=== PATIENT | male | born 1940 | race Caucasian/White ===

== ENCOUNTER 2016-06-03 20:04 | Emergency (ER) | payer OTHER, MEDICARE ==
[2016-06-03 20:13] VITALS: BP 129/77; PULSE 65; TEMP 98.1; BMI 38.4
[2016-06-03] MEDS ORDERED: ONDANSETRON 4 MG/2 ML VIAL IVPUSH ONE (20:34)
--- NOTE | 2016-06-03 20:34 | PDOC ---
History of Present Illness - General History Source: Patient Exam Limitations: No Limitations - History of Present Illness Initial Comments: 06/03/16 21:28 The patient is a 76 year old male, with a significant past medical history of cardiac stent and HLD, who presents to the emergency department with abdominal pain and nausea onset 2 hours prior to presentation. He states that he was sitting down when the pain started. He also reports abdominal bloating. He denies any changes to his bowel movements. 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 The patient denies chest pain, shortness of breath, headache and dizziness. Denies fever, chills, nausea, vomit, diarrhea and constipation. Denies dysuria, frequency, urgency and hematuria. Allergies: Penicillins Past surgical history: Cardiac stent, appendectomy, cholecystectomy Social history: No alcohol, tobacco or drug use reported <Paxton Amezquita - Last Filed: 06/03/16 21:34> <Eufemia Mayen - Last Filed: 06/04/16 01:06> - General Chief Complaint: Pain Stated Complaint: ABD PAIN, NAUSEA Time Seen by Provider: 06/03/16 20:15 Past History <Paxton Amezquita - Last Filed: 06/03/16 21:34> - Past Medical History Cardiac Disorders: Yes (CARDIAC STENT) Hypercholesterolemia: Yes - Surgical History Appendectomy: Yes Cardiac Surgery: Yes (CARDIAC STENT, ABLATION) Cholecystectomy: Yes - Psycho/Social/Smoking Cessation Hx Anxiety: No Suicidal Ideation: No Smoking Status: No Smoking History: Never smoked Have you smoked in the past 12 months: No Number of Cigarettes Smoked Daily: 0 If you are a former smoker, when did you quit?: 25 YEARS AGO Information on smoking cessation initiated: No Hx Alcohol Use: No Drug/Substance Use Hx: No Substance Use Type: None <Eufemia Mayen - Last Filed: 06/04/16 01:06> - Past Medical History Allergies/Adverse Reactions: Allergies Allergy/AdvReac Type Severity Reaction Status Date / Time Penicillins Allergy Unknown Verified 06/03/16 20:06 Home Medications: Ambulatory Orders Metoprolol Succinate [Toprol XL -] 25 mg PO DAILY 06/27/15 Donepezil HCl mg PO DAILY 06/03/16 Ondansetron [Zofran Odt -] 4 mg SL TID PRN #10 od.tablet 06/03/16 Review of Systems - Review of Systems Able to Perform ROS?: Yes Comments:: 06/03/16 21:28 GENERAL/CONSTITUTIONAL: No fever or chills. No weakness. HEAD, EYES, EARS, NOSE AND THROAT: No change in vision. No ear pain or discharge. No sore throat. CARDIOVASCULAR: No chest pain or shortness of breath RESPIRATORY: No cough, wheezing, or hemoptysis. GASTROINTESTINAL: +Abdominal pain and nausea. No vomiting, diarrhea or constipation. GENITOURINARY: No dysuria, frequency, or change in urination. MUSCULOSKELETAL: No joint or muscle swelling or pain. No neck or back pain. SKIN: No rash NEUROLOGIC: No headache, vertigo, loss of consciousness, or change in strength/ sensation. ENDOCRINE: No increased thirst. No abnormal weight change HEMATOLOGIC/LYMPHATIC: No anemia, easy bleeding, or history of blood clots. ALLERGIC/IMMUNOLOGIC: No hives or skin allergy. <Paxton Amezquita - Last Filed: 06/03/16 21:34> *Physical Exam - Vital Signs Last Vital Signs Temp Pulse Resp BP Pulse Ox 98.1 F 65 18 129/77 96 06/03/16 20:05 06/03/16 20:05 06/03/16 20:05 06/03/16 20:05 06/03/16 20:05 - Physical Exam Comments: 06/03/16 21:29 GENERAL: Awake, alert, and fully oriented, in no acute distress HEAD: No signs of trauma, normocephalic, atraumatic EYES: PERRLA, EOMI, sclera anicteric, conjunctiva clear ENT: Auricles normal inspection, hearing grossly normal, nares patent, oropharynx clear without exudates. Moist mucosa NECK: Normal ROM, supple, no lymphadenopathy, JVD, or masses LUNGS: No distress, speaks full sentences, clear to auscultation bilaterally HEART: Regular rate and rhythm, normal S1 and S2, no murmurs, rubs or gallops, peripheral pulses normal and equal bilaterally. ABDOMEN: Soft, nontender, normoactive bowel sounds. No guarding, no rebound. No masses EXTREMITIES: Normal inspection, Normal range of motion, no edema. No clubbing or cyanosis. NEUROLOGICAL: Cranial nerves II through XII grossly intact. Normal speech, normal gait, no focal sensorimotor deficits SKIN: Warm, Dry, normal turgor, no rashes or lesions noted. <Paxton Amezquita - Last Filed: 06/03/16 21:34> - Vital Signs Last Vital Signs Temp Pulse Resp BP Pulse Ox 98.1 F 65 18 129/77 96 06/03/16 20:05 06/03/16 20:05 06/03/16 20:05 06/03/16 20:05 06/03/16 20:05 <Eufemia Mayen - Last Filed: 06/04/16 01:06> ED Treatment Course - LABORATORY CBC & Chemistry Diagram: 06/03/16 20:00 06/03/16 20:00 - ADDITIONAL ORDERS Additional order review: Laboratory Results 06/03/16 06/03/16 06/03/16 20:00 20:00 20:00 Sodium 137 Potassium 3.9 Chloride 103 Carbon Dioxide 26 Anion Gap 8 BUN 14 D Creatinine 0.7 Creat Clearance w eGFR > 60 Random Glucose 155 H Calcium 8.9 Total Bilirubin 0.4 D AST 19 D ALT 18 D Alkaline Phosphatase 68 Creatine Kinase 132 Troponin I < 0.03 L Total Protein 6.6 Albumin 4.0 Lipase 50 06/03/16 20:00 RBC 5.20 MCV 84.6 MCHC 32.5 RDW 13.6 MPV 7.8 Neutrophils % 78.6 Lymphocytes % 13.6 Monocytes % 5.2 Eosinophils % 2.3 Basophils % 0.3 - Medications Given in the ED: ED Medications Discontinued Medications Generic Name Dose Route Start Last Admin Trade Name Heribertoq PRN Reason Stop Dose Admin Ondansetron HCl 4 mg 06/03/16 20:34 06/03/16 20:50 Zofran Injection IVPUSH 06/03/16 20:35 4 mg ONCE ONE Administration <Paxton Amezquita - Last Filed: 06/03/16 21:34> - LABORATORY CBC & Chemistry Diagram: 06/03/16 20:00 06/03/16 20:00 <Eufemia Mayen - Last Filed: 06/04/16 01:06> Progress Note - Progress Note Progress Note: Documentation has been prepared under my direction and personally reviewed by me in its entirety. I attest that this documented accurately reflects all work, treatment, procedures and medical decision making performed by me. <Eufemia Mayen - Last Filed: 06/04/16 01:06> Medical Decision Making - Medical Decision Making As noted above, this 76-year-old man with a history of coronary artery disease ( stent), hyperlipidemia, appendectomy and cholecystectomy presents with few hour history of nausea. Patient has not actually vomited or had fever/chills, diarrhea or constipation. 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 No recent travel. No ingestion of food from a restaurant or catered event. Patient denies chest pain/shortness of breath/arm pain/jaw pain or diaphoresis Cardiac risk factors: Hyperlipidemia and previous history of coronary artery disease. Patient is a former smoker (none 25 years) Exam was unremarkable no abdominal tenderness or masses. Twelve-lead electrocardiogram is performed. This shows normal sinus rhythm at 73 bpm; there is no evidence of acute ST or T-wave abnormalities. [place], intervals and wave forms are all normal. Tracing is unchanged from previous EKG dated 06/27/15 Laboratory evaluation including cardiac enzymes are essentially normal. Patient received Zofran 4 mg IV. After this medication was administered, patient felt significantly better and asked to be discharged. Patient given 8 ounces of water by mouth prior to discharge. He tolerated this well feeling no discomfort or nausea. Patient will be discharged with instructions to maintain clear liquids and advance diet cautiously. Prescription for Zofran 4 mg ODT to be taken up to 3 times a day will be transmitted to his pharmacy. He should not work tomorrow and return to the ER if vomiting/pain/fever occurs Follow-up with his doctor should be within the next 4-5 days <Eufemia Mayen - Last Filed: 06/04/16 01:06> *DC/Admit/Observation/Transfer - Attestations Scribe Attestion: 06/03/16 21:29 Documentation prepared by Paxton Amezquita, acting as medical science liaison for Eufemia Mayen MD <Paxton Amezquita - Last Filed: 06/03/16 21:34> <Eufemia Mayen - Last Filed: 06/04/16 01:06> Diagnosis at time of Disposition: Nausea - Discharge Dispostion Disposition: HOME Condition at time of disposition: Stable - Prescriptions Prescriptions: Ondansetron [Zofran Odt -] 4 mg SL TID PRN #10 od.tablet PRN Reason: Nausea - Referrals Referrals: Henrry Hannah [Primary Care Provider] - - Patient Instructions Printed Discharge Instructions: DI for Viral Gastroenteritis -- Adult Additional Instructions: clear liquids, advance diet cautiously zofran ODT 4mg up to3 times a day as needed for nausea no work tomorrow return to ER if you have severe nausea or develop pain see your general doctor within 4-5 days - Post Discharge Activity Work/School Note: Back to Work
[2016-06-03] MEDS ORDERED: ONDANSETRON 4 MG/2 ML VIAL ONE (20:47)
[2016-06-03 20:49] LABS: BASOPHIL 0.3 % (0-2.0); EOSINOPHIL 2.3 % (0-4.5); MCH 27.5 pg (25.7-33.7); MCHC 32.5 g/dl (32.0-35.9); MEAN CELL VOLUME 84.6 fl (80-96); MEAN PLT VOLUME 7.8 fl (7.5-11.1); NEUTROPHILS 78.6 % (42.8-82.8); PLATELET COUNT 215 K/MM3 (134-434); RDW 13.6 % (11.9-15.9); WHITE BLOOD COUNT 10.1 K/mm3 (4.0-10.0)
[2016-06-03 21:05] LABS: ALK PHOS 68 U/L (32-92); ANION GAP 8 (8-16); BILIRUBIN,TOTAL 0.4 mg/dl (0.2-1.0); CALCIUM 8.9 mg/dl (8.4-10.2); CO2 26 mmol/L (22-28); CREATININE 0.7 mg/dl (0.6-1.3); GLUCOSE,RANDOM 155 mg/dl (74-106); SGOT/AST 19 U/L (10-42); SGPT/ALT 18 U/L (10-40); TOT PROT 6.6 g/dl (6.4-8.3)
[2016-06-03 21:06] LABS: CPK(DFH) 132 IU/L (38-174)
[2016-06-03 21:16] LABS: TROPONIN I (DFP) < 0.03 ng/ml (0.03-0.50)
--- NOTE | 2016-06-04 16:20 | EKG ---
Test Reason : Blood Pressure : / mmHG Vent. Rate : 073 BPM Atrial Rate : 073 BPM P-R Int : 150 ms QRS Dur : 082 ms QT Int : 408 ms P-R-T Axes : 046 012 010 degrees QTc Int : 449 ms POOR DATA QUALITY, INTERPRETATION MAY BE ADVERSELY AFFECTED NORMAL SINUS RHYTHM LOW VOLTAGE QRS NO PREVIOUS ECGS AVAILABLE Confirmed by MD FINK MARJORY ([id number]) on 06/04/2016 4:20:26 PM Referred By: ISABELA Confirmed By:KONG FINK MD
== END 2016-06-03 22:00 | disposition home or self-care (01) ==
LOC: FER 20:04
PROC: 3E033GC Introduction of Other Therapeutic Substance into Peripheral Vein, Percutaneous Approach (ICD-10-PCS; principal; 2016-06-03)
DX: R11.0 Nausea (principal); Z87.891 Personal history of nicotine dependence; Z95.5 Presence of coronary angioplasty implant and graft; E78.5 Hyperlipidemia, unspecified
CPT/HCPCS: 36415; 80053; 82550; 83690; 84484; 85025; 93005; 93010; 99285-25

== ENCOUNTER 2016-10-09 15:25 | Emergency (ER) | payer OTHER, MEDICARE ==
--- NOTE | 2016-10-09 15:29 | PDOC ---
Attending Attestation - Resident Resident Name: Charline Gonzalez - ED Attending Attestation I have performed the following: I have examined & evaluated the patient, The case was reviewed & discussed with the resident, I agree w/resident's findings & plan, Exceptions are as noted - HPI HPI: 10/09/16 15:28 The patient is a 76-year-old male, who presents to the emergency department with right toe pain, after he reports dropping "a slab of marble" on it. The pain as a dull ache. It is worsened by palpation and ambulation. He denies injury to the foot more proximal than the toe. - Physicial Exam PE: 10/09/16 15:29 He is well-appearing and in no acute distress He ambulated without a limp There is tenderness to palpation and visible swelling over the right great toe Capillary refill is symmetric to the left great toe - Medical Decision Making 10/09/16 15:29 Will obtain plain x-ray 10/09/16 16:28 X-ray emergency Department interpretation: Fracture of the proximal phalanx of the right great toe Clinical impression: Fracture of the proximal phalanx of the right great toe
[2016-10-09 15:33] VITALS: BP 117/69; PULSE 87; TEMP 98.3; BMI 42.0
--- NOTE | 2016-10-09 16:11 | PDOC ---
History of Present Illness - General Chief Complaint: Injury Stated Complaint: RIGHT BIG TOE INJURY Time Seen by Provider: 10/09/16 15:28 History Source: Patient Exam Limitations: No Limitations - History of Present Illness Initial Comments: 10/09/16 16:10 The patient is a 76 year old male, with a significant past medical history of cardiac stent and HLD, who presents to the emergency department s/p trauma to R 1st toe. shortly before presentation he dropped a heavy marble tile on his toe. he was wearing shoes at the time. He denies lesion or bleeding. He states his toe is swollen but he is able to move it and has moderate pain with weight bearing/walking. He denies trauma to other body parts, denies active infectious process or history of frequent infections. He denies claudication, ankle edema, neuropathy or DM. He denies sob or cough. 10/09/16 16:11 10/09/16 16:13 10/09/16 16:16 Past History - Past Medical History Allergies/Adverse Reactions: Allergies Allergy/AdvReac Type Severity Reaction Status Date / Time Penicillins Allergy Unknown Verified 10/09/16 15:28 Home Medications: Ambulatory Orders Metoprolol Succinate [Toprol XL -] 25 mg PO DAILY 06/27/15 Donepezil HCl mg PO DAILY 06/03/16 Cardiac Disorders: Yes (CARDIAC STENT) HTN: Yes Hypercholesterolemia: Yes - Surgical History Appendectomy: Yes Cardiac Surgery: Yes (CARDIAC STENT, ABLATION) Cholecystectomy: Yes - Psycho/Social/Smoking Cessation Hx Anxiety: No Suicidal Ideation: No Smoking Status: No Smoking History: Never smoked Have you smoked in the past 12 months: No Number of Cigarettes Smoked Daily: 0 If you are a former smoker, when did you quit?: 25 YEARS AGO Information on smoking cessation initiated: No Hx Alcohol Use: No Drug/Substance Use Hx: No Substance Use Type: None Review of Systems - Review of Systems Able to Perform ROS?: Yes Is the patient limited Turkish proficient: No Respiratory: No: Cough, Shortness of Breath, Hemoptysis Cardiac (ROS): No: Chest Pain, Edema, Palpitations, Syncope ABD/GI: No: Nausea Integumentary: Yes: Bruising. No: Lesions, Lumps, Pruritus, Rash Neurological: No: Dizziness Hematologic/Lymphatic: No: Anemia, Easy Bleeding, Easy Bruising, Swollen Glands All Other Systems: Reviewed and Negative *Physical Exam - Vital Signs Last Vital Signs Temp Pulse Resp BP Pulse Ox 98.3 F 87 18 117/69 97 10/09/16 15:25 10/09/16 15:25 10/09/16 15:25 10/09/16 15:25 10/09/16 15:25 - Physical Exam Comments: 10/09/16 16:17 General: AAOx3 NAD HEENT: normocephalic, atraumatic Muslculoskeletal: R 1st toe moderetely edematous, slight area of early bruising on dorsal aspect of toe, no joint laxity or palpable bony deformity. tender Neuro: 5/5 strenght in LE b/l. no loss of sensation on feet ED Treatment Course - RADIOLOGY Radiology Studies Ordered: Category Date Time Status TOE(S) RIGHT [RAD] Stat Radiology 10/09/16 15:39 Ordered Medical Decision Making - Medical Decision Making 10/09/16 16:19 Patient presents with toe trauma. will order X ray of 1st R toe. 10/09/16 16:58 X ray shows francture of the metatarsal bone of 1st R toe. Patient discharged with hard soled shoe, instructions on analgesia, elevation, icing and recommendation for Dr Santamaria f/u *DC/Admit/Observation/Transfer Diagnosis at time of Disposition: Fracture of toe of right foot - Discharge Dispostion Disposition: HOME Condition at time of disposition: Good - Referrals Referrals: Henrry Hannah [Primary Care Provider] - Antony Santamaria MD [Staff Physician] - - Patient Instructions Printed Discharge Instructions: DI for Toe Fracture Additional Instructions: you fractured your right big toe. wear the hard sole boot we provided. follow up with Orthopedist Dr Santamaria this week for further management. take over the counter tylenol and motrin for pain according to label. elevate ruddy foot and ice the toe. Return to ER if pain/swelling worsens, if you develop fever, loose sensation in toe or if toe starts oozing discarge.
== END 2016-10-09 17:05 | disposition home or self-care (01) ==
LOC: FER 15:25
DX: S92.411A Displaced fracture of proximal phalanx of right great toe, initial encounter for closed fracture (principal); W20.8XXA Other cause of strike by thrown, projected or falling object, initial encounter; Y93.9 Activity, unspecified; Y92.9 Unspecified place or not applicable; E78.5 Hyperlipidemia, unspecified; Z95.5 Presence of coronary angioplasty implant and graft; Z87.891 Personal history of nicotine dependence
CPT/HCPCS: 73660-TC; 99283-25

== ENCOUNTER 2017-03-17 22:01 | Emergency (ER) | payer OTHER, MEDICARE ==
--- NOTE | 2017-03-17 22:06 | PDOC ---
History of Present Illness - General Chief Complaint: Ingestion Stated Complaint: brushed teeth with cortisone History Source: Patient Exam Limitations: No Limitations - History of Present Illness Initial Comments: 03/17/17 22:24 This is a 76-year-old male who comes in complaining that he accidentally brushed his teeth with a little bit of hydrocortisone 10 cream. Patient noticed it immediately and spit it out however he was concerned because he lives alone and wanted to make sure there was nothing that he needed to be worried about. Patient otherwise denied any complaints. PAST MEDICAL HISTORY: CAD PAST SURGICAL HISTORY: no significant history FAMILY HISTORY: no pertinant history SOCIAL HISTORY: Pt lives with family and is employed. MEDICATIONS: reviewed ALLERGIES: As per nursing notes Review of Systems General: No fevers or chills, no weakness, no weight loss HEENT: No change in vision. No sore throat,. No ear pain CardioVascular: No chest pain or shortness of breath Respiratory:No cough, or wheezing. Gastrointestinal: no nausea, vomitting, diarrhea or constipation, No rectal bleeding Genitourinary: No dysuria, hematuria, or frequency Musculoskeletal: No joint or muscle pain or swelling Neurologic: No headache, vertigo, dizziness or loss of consciousness Psychiatric: nor depression Skin: No rashes or easy bruising Endocrine: no increased thirst or abnormal weight change Allergic: no skin or latex allergy All other systems reviewed and normal GENERAL: The patient is awake, alert, and fully oriented, in no acute distress. HEAD: Normal with no signs of trauma. MOUTH: Mouth and oropharynx are normal on visual exam EYES: Pupils equal, round and reactive to light, extraocular movements intact, sclera anicteric, conjunctiva clear. EXTREMITIES: Normal range of motion, no edema. NEUROLOGICAL: Normal speech, normal gait. grossly intact PSYCH: Normal mood, normal affect. SKIN: Warm, Dry, normal turgor, no rashes or lesions noted. Assessment and plan: This is a 76-year-old male who accidentally brushed his teeth with a very tiny amount of hydrocortisone cream. Patient said he noticed it and immediately spit it out. Patient has a normal exam he is somewhat anxious but otherwise his exam is completely normal. Patient was reassured there is nothing to be worried about and discharged home. 03/17/17 22:26 Past History - Past Medical History Allergies/Adverse Reactions: Allergies Allergy/AdvReac Type Severity Reaction Status Date / Time Penicillins Allergy Unknown Verified 10/09/16 15:28 Home Medications: Ambulatory Orders Memantine HCl/Donepezil HCl [Namzaric 21 mg-10 mg Capsule] 1 each PO DAILY 03/17 Cardiac Disorders: Yes (CARDIAC STENT) HTN: Yes Hypercholesterolemia: Yes - Surgical History Appendectomy: Yes Cardiac Surgery: Yes (CARDIAC STENT, ABLATION) Cholecystectomy: Yes - Suicide/Smoking/Psychosocial Hx Smoking Status: No Smoking History: Never smoked Have you smoked in the past 12 months: No Number of Cigarettes Smoked Daily: 0 If you are a former smoker, when did you quit?: 25 YEARS AGO Hx Alcohol Use: No Drug/Substance Use Hx: No Substance Use Type: None *DC/Admit/Observation/Transfer Diagnosis at time of Disposition: Accidental ingestion of substance Qualifiers: Encounter type: initial encounter Qualified Code(s): T65.91XA - Toxic effect of unspecified substance, accidental (unintentional), initial encounter - Discharge Dispostion Disposition: HOME Condition at time of disposition: Stable Admit: No - Referrals Referrals: Nathan Knapp MD [Primary Care Provider] - - Patient Instructions Additional Instructions: There is nothing to be concerned about regarding the hydrocortisone.. Follow-up with your doctor as needed. Return to the emergency department immediately with ANY new, persistent or worsening symptoms. Continue any medications as previously prescribed by your physician. Thank you for coming to the Emergency Department today for your care. It was a pleasure to see you today. Please note that your evaluation is INCOMPLETE until you follow-up with your doctor. - Post Discharge Activity
[2017-03-17 22:10] VITALS: BP 133/78; PULSE 75; TEMP 97.4; BMI 35.4
== END 2017-03-17 22:27 | disposition home or self-care (01) ==
LOC: FER 22:01
DX: T65.91XA Toxic effect of unspecified substance, accidental (unintentional), initial encounter (principal); I25.10 Atherosclerotic heart disease of native coronary artery without angina pectoris; I10 Essential (primary) hypertension; Z95.5 Presence of coronary angioplasty implant and graft; E78.00 Pure hypercholesterolemia, unspecified
CPT/HCPCS: 99281-25

== ENCOUNTER 2017-06-23 08:51 | Emergency (ER) | payer OTHER, MEDICARE ==
[2017-06-23 09:17] VITALS: BP 126/73; PULSE 88; TEMP 98.8; BMI 37.7
[2017-06-23] MEDS ORDERED: IBUPROFEN 400 MG TABLET (FP) PO ONE ×2 (09:49→09:53)
--- NOTE | 2017-06-23 09:55 | PDOC ---
History of Present Illness - General Chief Complaint: Injury Stated Complaint: SLIPPED ON ICE LANDED ON ALL 4 EXTREMITIES INJU Time Seen by Provider: 06/23/17 09:05 - History of Present Illness Initial Comments: 06/23/17 09:50 Chief complaint: Neck pain History of present illness: 77 years old past medical history significant for coronary artery disease, status post 2 stents, hyperlipidemia presents to the emergency department status post mechanical slip and fall on ice this morning. Patient states he landed on his hands and his knees did not hit his head but his neck was jolted and he is complaining of some left sided and slight midline neck pain. Pain is moderate 4 out of 10 achy slightly worse with movement alleviated by rest no arm weakness or numbness no other injury sustained he was able to stand up on his own power and ambulated into the emergency department. Denies headache chest pain shortness of breath nausea vomiting diarrhea dizziness or lightheadedness. Past History - Past Medical History Allergies/Adverse Reactions: Allergies Allergy/AdvReac Type Severity Reaction Status Date / Time Penicillins Allergy Mild Rash Verified 06/23/17 08:54 Home Medications: Ambulatory Orders Memantine HCl/Donepezil HCl [Namzaric 21 mg-10 mg Capsule] 1 each PO DAILY 03/17 Metoprolol Succinate 25 mg PO DAILY 06/23/17 Cardiac Disorders: Yes (CARDIAC STENT) COPD: No HTN: Yes Hypercholesterolemia: Yes - Surgical History Appendectomy: Yes Cardiac Surgery: Yes (CARDIAC STENT, ABLATION) Cholecystectomy: Yes - Suicide/Smoking/Psychosocial Hx Smoking Status: No Smoking History: Former smoker Have you smoked in the past 12 months: No Number of Cigarettes Smoked Daily: 0 If you are a former smoker, when did you quit?: 25 years ago Information on smoking cessation initiated: No Hx Alcohol Use: No Drug/Substance Use Hx: No Substance Use Type: None Review of Systems - Review of Systems Comments:: 06/23/17 09:55 ROS: A complete review of 10 out of 10 review of systems is taken and is negative apart from what is previously mentioned below and in the HPI. *Physical Exam - Vital Signs Last Vital Signs Temp Pulse Resp BP Pulse Ox 98.8 F 88 20 126/73 98 06/23/17 08:53 06/23/17 08:53 06/23/17 08:53 06/23/17 08:53 06/23/17 08:53 - Physical Exam Comments: 06/23/17 09:55 Vitals: Triage Vital signs reviewed General Appearance: no acute distress, well nourished well developed, Head: Atraumatic, Eyes: Pupils equal reactive round, extraocular movement intact Neck: Supple;No Nucal rigidity, mild C7-T1 tenderness to palpation Chest Wall: Nontender Cardiac: Regular rate and rhythym, no murmurs, no rubs, no gallops, Lungs: Clear to auscultation bilateral, good air movement bilaterally, Abdomen: Soft, non distended, normal bowel sounds, non tender to palpation Extremities: Full range of motion to all extremities, no cyanosis, clubbing, or edema Skin: Warm and dry, no rashes or lesions, no rash, no petechiae Neuro: AOX3; Cranial Nerves 2-12 grossly intact, Strength intact to all extremities, Sensation intact to all extremities,gait normal Psych: normal mood, normal affect ED Treatment Course - RADIOLOGY Radiology Studies Ordered: Category Date Time Status CERVICAL SPINE CT W/O CONTR [CT] Stat CT Scan 06/23/17 09:22 Ordered Medical Decision Making - Medical Decision Making 06/23/17 09:56 77 years old past medical history significant for CAD status post stents, hyperlipidemia presents with mechanical slip and fall landed on his hands and knees complaining of mild neck pain No injuries sustained to hands and knees no neurologic findings on examination given mild midline neck tenderness patient could not be cleared by Nexus criteria we'll CT neck. Patient refused pain medication well-appearing no apparent distress 06/23/17 10:14 Reevaluation 10am repeat neuro exam nl, nl strength and sensation. No significant midline TTP No acute fx/dislocation noted on CT Pt. provided with spine f/u . Findings the need for follow and strict return instructions d/w patient *DC/Admit/Observation/Transfer Diagnosis at time of Disposition: Neck pain - Discharge Dispostion Condition at time of disposition: Stable Admit: No - Referrals Referrals: Jean Carrera MD, FAANS [Staff Physician] - Rob Ceja MD [Staff Physician] - - Patient Instructions Printed Discharge Instructions: DI for Neck Pain Additional Instructions: Ice back of neck and any other sore affected areas 20 minutes on 20 minutes off. Take [id number] Tylenol as directed on package as needed for pain. Return to the emergency department immediately for any weakness numbness in her arms or legs severe uncontrollable neck pain any headache or for any concerns. If any persistent neck pain for more than 2-3 days follow-up with either Dr. Pham or Dr. Ceja - Post Discharge Activity
== END 2017-06-23 10:31 | disposition home or self-care (01) ==
LOC: FER 08:51
DX: M54.2 Cervicalgia (principal); W00.0XXA Fall on same level due to ice and snow, initial encounter; Y93.89 Activity, other specified; Y92.9 Unspecified place or not applicable; I10 Essential (primary) hypertension; E78.00 Pure hypercholesterolemia, unspecified; Z95.5 Presence of coronary angioplasty implant and graft; Z87.891 Personal history of nicotine dependence
CPT/HCPCS: 72125-TC; 99283-25

== ENCOUNTER 2018-05-08 01:21 | Emergency (ER) | payer OTHER, MEDICARE ==
--- NOTE | 2018-05-08 01:24 | PDOC ---
History of Present Illness - General Chief Complaint: Palpitations Stated Complaint: PALPITATIONS Time Seen by Provider: 05/08/18 01:23 - History of Present Illness Initial Comments: 05/08/18 02:00 This 77-year-old man with history of HTN/CAD(stent placement "many years ago")/ Afib with ablation procedure presents with history of awakening approximately one half hour prior to presentation with palpitations (rapid/not irregular) and mild anterior chest discomfort. Patient admits mild shortness of breath; denies diaphoresis/nausea. Although the patient has had anxiety/panic attacks in the past, states that this episode is unlike his previous acute anxiety attacks. Patient is unable to elaborate why this is different from previous episodes. No recent fever/cough. No recent increase in lower extremity edema. He denies vomiting/diarrhea and has not had no recent dietary indiscretion or unusual food ingestions. Patient lives alone; he denies recent increase in stressors. Although he has a history of hypertension, he cannot recall taking any medication on a daily basis. The patient cannot recall circumstances around coronary artery stent placement, review of medical record reveals that stents were placed after routine stress test was positive in 2011. No history of [facility] PMD: Dr. Henrry Hannah ([facility]) ALLERGIES: Penicillin Denies smoking/EtOH Past History - Past Medical History Allergies/Adverse Reactions: Allergies Allergy/AdvReac Type Severity Reaction Status Date / Time Penicillins Allergy Mild Rash Verified 06/23/17 08:54 Home Medications: Ambulatory Orders NK [No Known Home Medication] 05/08/18 Cardiac Disorders: Yes (CARDIAC STENT) COPD: No HTN: Yes Hypercholesterolemia: Yes - Surgical History Appendectomy: Yes Cardiac Surgery: Yes (CARDIAC STENT, ABLATION) Cholecystectomy: Yes - Suicide/Smoking/Psychosocial Hx Smoking Status: No Smoking History: Former smoker Have you smoked in the past 12 months: No Number of Cigarettes Smoked Daily: 0 If you are a former smoker, when did you quit?: 25 years ago Hx Alcohol Use: No Drug/Substance Use Hx: No Substance Use Type: None Review of Systems - Review of Systems Able to Perform ROS?: Yes Comments:: 12 point review of systems is negative except for what is noted in the history of present illness *Physical Exam - Vital Signs Last Vital Signs Temp Pulse Resp BP Pulse Ox 97.5 F L 84 18 126/76 98 05/08/18 01:25 05/08/18 01:25 05/08/18 01:25 05/08/18 01:25 05/08/18 01:25 - Physical Exam Comments: GENERAL: Adult male, appearing anxious but in no acute respiratory distress HEAD: Normal with no signs of trauma. EYES: PERRLA, EOMI, sclera anicteric, conjunctiva clear. ENT: Ears normal, nares patent, oropharynx clear without exudates. Moist mucous membranes. NECK: Normal range of motion, supple without lymphadenopathy, JVD, or masses. LUNGS: Breath sounds equal, clear to auscultation bilaterally. No wheezes, and no crackles. HEART:Regular rate and rhythm, normal S1 and S2 without murmur, rub or gallop. ABDOMEN:.normal bowel sounds No guarding,tenderness or rebound.No masses No distention. EXTREMITIES: Normal range of motion, 1+ pitting edema of the ankles bilaterally. No clubbing or cyanosis. No erythema, or tenderness. NEUROLOGICAL: Cranial nerves II through XII grossly intact. Normal speech. No focal neurological deficits. MUSCULOSKELETAL: Back non-tender to palpation, no CVA tenderness SKIN: Warm, Dry, normal turgor, no rashes or lesions noted. Moderate Sedation - Procedure Monitoring Vital Signs: Procedure Monitoring Vital Signs Temperature 97.5 F L 05/08/18 01:25 Pulse Rate 84 05/08/18 01:25 Respiratory Rate 18 05/08/18 01:25 Blood Pressure 126/76 05/08/18 01:25 O2 Sat by Pulse Oximetry (%) 98 05/08/18 01:25 ED Treatment Course - LABORATORY CBC & Chemistry Diagram: 05/08/18 02:05 05/08/18 02:05 - ADDITIONAL ORDERS Additional order review: Laboratory Results 05/08/18 05/08/18 05/08/18 02:55 02:05 02:05 PT with INR 13.40 H INR 1.13 H Sodium 141 Potassium 4.0 Chloride 105 Carbon Dioxide 28 Anion Gap 7 L BUN 18 Creatinine 0.8 Creat Clearance w eGFR > 60 Random Glucose 126 H Calcium 8.5 Total Bilirubin 0.4 AST 20 ALT 26 Alkaline Phosphatase 117 Creatine Kinase 97 Troponin I < 0.02 Total Protein 6.9 Albumin 3.8 Urine Color Yellow Urine Appearance Clear Urine pH 5.0 Ur Specific [place] 1.025 Urine Protein Negative Urine Glucose (UA) Negative Urine Ketones Negative Urine Blood Negative Urine Nitrite Negative Urine Bilirubin Negative Urine Urobilinogen Negative Ur Leukocyte Esterase Negative 05/08/18 02:05 RBC 5.13 MCV 86.0 MCHC 34.6 RDW 14.5 MPV 7.8 Neutrophils % 76.0 Lymphocytes % 15.6 Monocytes % 7.1 Eosinophils % 1.0 Basophils % 0.3 - RADIOLOGY Radiology Studies Ordered: Category Date Time Status CHEST X-RAY PORTABLE* [RAD] Stat Radiology 05/08/18 02:43 Taken - Medications Given in the ED: ED Medications Discontinued Medications Generic Name Dose Route Start Last Admin Trade Name Freq PRN Reason Stop Dose Admin Alprazolam 0.25 mg 05/08/18 02:40 05/08/18 02:45 Xanax - PO 05/08/18 02:41 0.25 mg ONCE ONE Administration Medical Decision Making - Medical Decision Making 05/08/18 02:15 12-lead electrocardiogram is performed and interpreted by me: Normal sinus rhythm at 80 bpm; waveforms, axis and intervals are all normal. There is no change from previous EKG tracing dated 06/03/16 This 77-year-old man history of CAD/HTN presents with history of awakening with palpitations/anterior chest discomfort. Although the patient has a history of panic attacks and anxiety, the patient states this is different from those episodes. Other than very mild shortness of breath by history, there are no associated symptoms. Exam as noted CBC/chemistry profile/troponin sent Patient given 0.25 mg Xanax PO Portable chest x-ray performed: Preliminary interpretation-no evidence of effusion/infiltrate/masses or vascular abnormality Laboratory evaluation is essentially normal. Troponin is not elevated. Patient is now comfortable without any further symptoms. He will be discharged with instructions to return to the emergency room if he has any persistent discomfort or recurrent palpitations. He should call his primary medical doctor as soon as possible for follow-up within 48 hours *DC/Admit/Observation/Transfer Diagnosis at time of Disposition: Palpitations - Discharge Dispostion Disposition: HOME Condition at time of disposition: Stable - Referrals Referrals: Henrry Hannah [Primary Care Provider] - 24 hours - Patient Instructions Printed Discharge Instructions: DI for Palpitations Additional Instructions: Rest; drink plenty of fluids Call your doctor on May 09 to arrange for follow-up within the next 48 hours Return to ER if you have any persistent palpitations or chest discomfort/ shortness of breath - Post Discharge Activity
[2018-05-08 01:29] VITALS: BP 126/76; PULSE 84; TEMP 97.5; BMI 35.4
[2018-05-08] MEDS ORDERED: ALPRAZolam 0.25 MG TABLET PO ONE (02:40)
[2018-05-08] MEDS ORDERED: ALPRAZolam 0.25 MG TABLET ONE (02:44)
[2018-05-08 02:58] LABS: BASO % 0.3 % (0-2.0); HEMATOCRIT 44.1 % (35.4-49); HEMOGLOBIN 15.3 GM/dL (11.7-16.9); LYMPH % 15.6 % (8-40); MCH 29.8 pg (25.7-33.7); MCHC 34.6 g/dl (32.0-35.9); MEAN PLT VOLUME 7.8 fl (7.5-11.1); MONO % 7.1 % (3.8-10.2); PLATELET COUNT 200 K/MM3 (134-434); RBC 5.13 M/mm3 (4.00-5.60); RDW 14.5 % (11.9-15.9)
[2018-05-08 03:06] LABS: URINE APPEARANCE CLEAR; URINE BILIRUBIN NEGATIVE (<2.0 mg/dL); URINE COLOR YELLOW; URINE GLUCOSE (UA) NEGATIVE (NEGATIVE); URINE KETONE NEGATIVE (NEGATIVE); URINE LEUK ESTERASE NEGATIVE (NEGATIVE); URINE NITRITE NEGATIVE (NEGATIVE); URINE PROTEIN NEGATIVE (NEGATIVE); URINE UROBILINOGEN NEGATIVE mg/dL (0.2-1.0)
[2018-05-08 03:11] LABS: INR 1.13 (0.83-1.09); PROTHROMBIN TIME (PATIENT) 13.4 SEC (9.7-13.0)
[2018-05-08 03:23] LABS: ALBUMIN 3.8 g/dl (3.4-5.0); ALK PHOS 117 U/L (45-117); ANION GAP 7 MMOL/L (8-16); BILIRUBIN,TOTAL 0.4 mg/dL (0.2-1); BLOOD UREA NITROGEN 18 mg/dL (7-18); CALCIUM 8.5 mg/dL (8.5-10.1); CHLORIDE 105 mmol/L (98-107); CO2 28 mmol/L (21-32); CREATININE 0.8 mg/dL (0.55-1.3); GLUCOSE,RANDOM 126 mg/dL (74-106); SGOT/AST 20 U/L (15-37); SGPT/ALT 26 U/L (13-61); SODIUM 141 mmol/L (136-145); TOT PROT 6.9 g/dl (6.4-8.2)
--- NOTE | 2018-05-08 12:18 | EKG ---
Test Reason : Blood Pressure : / mmHG Vent. Rate : 080 BPM Atrial Rate : 080 BPM P-R Int : 136 ms QRS Dur : 094 ms QT Int : 392 ms P-R-T Axes : 045 014 023 degrees QTc Int : 452 ms NORMAL SINUS RHYTHM NORMAL ECG WHEN COMPARED WITH ECG OF 03-JUN-2016 20:29, NO SIGNIFICANT CHANGE WAS FOUND Confirmed by ELPIDIO ESCOBAR MD ([id number]) on 05/08/2018 12:17:53 PM Referred By: MD MAR Confirmed By:ELPIDIO ESCOBAR MD
== END 2018-05-08 04:00 | disposition home or self-care (01) ==
LOC: FER 01:21
DX: R00.2 Palpitations (principal); I10 Essential (primary) hypertension; I25.10 Atherosclerotic heart disease of native coronary artery without angina pectoris; Z95.5 Presence of coronary angioplasty implant and graft; I48.91 Unspecified atrial fibrillation; E78.00 Pure hypercholesterolemia, unspecified
CPT/HCPCS: 36415; 71045-TC-FY; 80053; 81003; 82550; 84484; 85025; 85610; 93005; 99282-25

== ENCOUNTER 2018-06-16 13:56 | Emergency (ER) | payer OTHER, MEDICARE ==
--- NOTE | 2018-06-16 14:03 | PDOC ---
History of Present Illness <Markos Carr - Last Filed: 06/16/18 16:11> - History of Present Illness Initial Comments: 06/16/18 14:56 78-year-old man with history of HTN/CAD(stent placement "many years ago")/Afib with ablation procedure, dementia presents to the ED after falling in a parking lot shortly before presentation. He denies loss of consciousness but has pain and excoriations to the chin and nose bridge. Also complains of b/l rib pain and left knee pain. 06/16/18 15:39 <Naeem Carreno - Last Filed: 06/16/18 17:58> - General Chief Complaint: Pain Stated Complaint: RIGHT RIB PAIN AND BILATERAL KNEE PAIN Time Seen by Provider: 06/16/18 14:02 Past History <Markos Carr - Last Filed: 06/16/18 16:11> - Past Medical History Cardiac Disorders: Yes (CARDIAC STENT) COPD: No HTN: Yes Hypercholesterolemia: Yes - Surgical History Appendectomy: Yes Cardiac Surgery: Yes (CARDIAC STENT, ABLATION) Cholecystectomy: Yes - Suicide/Smoking/Psychosocial Hx Smoking Status: No Smoking History: Former smoker Have you smoked in the past 12 months: No Number of Cigarettes Smoked Daily: 0 If you are a former smoker, when did you quit?: 25 years ago Hx Alcohol Use: No Drug/Substance Use Hx: No Substance Use Type: None <WaiNaeem - Last Filed: 06/16/18 17:58> - Past Medical History Allergies/Adverse Reactions: Allergies Allergy/AdvReac Type Severity Reaction Status Date / Time Penicillins Allergy Mild Rash Verified 06/16/18 14:05 Home Medications: Ambulatory Orders Acetaminophen W/ Codeine #3 [Tylenol # 3 -] 1 - 2 tab PO Q4H PRN #10 tablet MDD 8 06/16/18 Ibuprofen 600 mg PO TID #15 tablet 06/16/18 Metoprolol Succinate 25 mg PO DAILY 06/16/18 Review of Systems - Review of Systems Able to Perform ROS?: Yes Is the patient limited Ecuadorean proficient: No Constitutional: No: Symptoms Reported HEENTM: No: Symptoms Reported Respiratory: No: Symptoms reported Cardiac (ROS): No: Symptoms Reported ABD/GI: No: Symptoms Reported : No: Symptoms Reported Musculoskeletal: Yes: See HPI Integumentary: No: Symptoms Reported Neurological: No: Symptoms reported <Naeem Carreno - Last Filed: 06/16/18 17:58> *Physical Exam - Vital Signs Last Vital Signs Temp Pulse Resp BP Pulse Ox 98.5 F 87 20 131/74 98 06/16/18 13:58 06/16/18 13:58 06/16/18 13:58 06/16/18 13:58 06/16/18 13:58 <Markos Carr - Last Filed: 06/16/18 16:11> - Physical Exam General Appearance: Yes: Appropriately Dressed, Mild Distress, Obese HEENT: positive: EOMI, SAMY, Normal ENT Inspection Respiratory/Chest: positive: Chest Tender (over ribs), Respiratory Distress. negative: Lungs Clear, Normal Breath Sounds Cardiovascular: positive: Regular Rhythm, Regular Rate, S1, S2 Gastrointestinal/Abdominal: positive: Normal Bowel Sounds, Flat, Soft. negative : Tender Musculoskeletal: positive: Normal Inspection Extremity: positive: Other (L knee pain ) Neurologic: positive: Alert, Normal Mood/Affect, Normal Response, Confused, Disoriented. negative: Fully Oriented <CarrenoNaeem - Last Filed: 06/16/18 17:58> Moderate Sedation - Procedure Monitoring Vital Signs: Procedure Monitoring Vital Signs Temperature 98.5 F 06/16/18 13:58 Pulse Rate 87 06/16/18 13:58 Respiratory Rate 20 06/16/18 13:58 Blood Pressure 131/74 06/16/18 13:58 O2 Sat by Pulse Oximetry (%) 98 06/16/18 13:58 <Markos Carr - Last Filed: 06/16/18 16:11> ED Treatment Course - LABORATORY CBC & Chemistry Diagram: 06/16/18 14:59 06/16/18 14:59 - ADDITIONAL ORDERS Additional order review: Laboratory Results 06/16/18 06/16/18 06/16/18 14:59 14:59 12:01 Sodium 135 L Potassium 3.8 Chloride 102 Carbon Dioxide 27 Anion Gap 6 L BUN 13 Creatinine 0.8 Creat Clearance w eGFR > 60 Random Glucose 111 H Calcium 8.8 Total Bilirubin 0.9 AST 30 ALT 27 Alkaline Phosphatase 91 Troponin I < 0.03 Total Protein 6.9 Albumin 4.0 Urine Color [place] Urine Appearance Clear Urine pH 5.5 D Ur Specific [place] >= 1.030 Urine Protein Negative Urine Glucose (UA) Negative Urine Ketones Negative Urine Blood Negative Urine Nitrite Negative Urine Bilirubin Negative Urine Urobilinogen 0.2 Ur Leukocyte Esterase Negative 06/16/18 14:59 RBC 5.26 MCV 87.5 MCHC 33.1 RDW 14.1 MPV 7.9 Neutrophils % 70.3 Lymphocytes % 19.7 D Monocytes % 7.1 Eosinophils % 2.4 Basophils % 0.5 - Medications Given in the ED: ED Medications Discontinued Medications Generic Name Dose Route Start Last Admin Trade Name Freq PRN Reason Stop Dose Admin Ibuprofen 800 mg 06/16/18 15:38 06/16/18 15:42 Motrin - PO 06/16/18 15:39 800 mg ONCE ONE Administration <Markos Carr - Last Filed: 06/16/18 16:11> - LABORATORY CBC & Chemistry Diagram: 06/16/18 14:59 06/16/18 14:59 <Naeem Carreno - Last Filed: 06/16/18 17:58> Medical Decision Making - Medical Decision Making 06/16/18 17:55 No fractures on xray. Ct head and neck normal. Will discharge with recommendations, 06/16/18 17:58 Patient more comfortable with the administration of Motrin. Fully ambulatory and in no severe pain at discharge to follow-up with primary physician or return to the ER if further symptoms develop. <Naeem Carreno - Last Filed: 06/16/18 17:58> *DC/Admit/Observation/Transfer - Discharge Dispostion Decision to Admit order: No <Markos Carr - Last Filed: 06/16/18 16:11> <Naeem Carreno - Last Filed: 06/16/18 17:58> Diagnosis at time of Disposition: Contusion of rib on right side Qualifiers: Encounter type: initial encounter Qualified Code(s): S20.211A - Contusion of right front wall of thorax, initial encounter - Discharge Dispostion Disposition: HOME Condition at time of disposition: Stable - Prescriptions Prescriptions: Acetaminophen W/ Codeine #3 [Tylenol # 3 -] 1 - 2 tab PO Q4H PRN #10 tablet MDD 8 PRN Reason: Severe Pain Ibuprofen 600 mg PO TID #15 tablet - Patient Instructions Printed Discharge Instructions: DI for Rib Contusion
[2018-06-16 14:17] VITALS: BP 131/74; PULSE 87; TEMP 98.5; BMI 36.9
[2018-06-16 15:10] LABS: PH,URINE 5.5 (4.5-8); URINE APPEARANCE Clear; URINE BILIRUBIN Negative (NEGATIVE); URINE COLOR Amber; URINE GLUCOSE (UA) Negative (NEGATIVE); URINE KETONE Negative (NEGATIVE); URINE LEUK ESTERASE Negative (NEGATIVE); URINE NITRITE Negative (NEGATIVE); URINE PROTEIN Negative (NEGATIVE); URINE UROBILINOGEN 0.2 (0.2-1.0)
[2018-06-16 15:11] LABS: BASO % 0.5 % (0-2.0); EOS % 2.4 % (0-4.5); HEMOGLOBIN 15.2 GM/dl (11.7-16.9); LYMPH % 19.7 % (8-40); MCHC 33.1 g/dl (32.0-35.9); MEAN CELL VOLUME 87.5 fl (80-96); MEAN PLT VOLUME 7.9 fl (7.5-11.1); MONO % 7.1 % (3.8-10.2); NEUT % 70.3 % (42.8-82.8); PLATELET COUNT 260 K/MM3 (134-434); RBC 5.26 M/mm3 (4.00-5.60); RDW 14.1 % (11.9-15.9); WHITE BLOOD COUNT 8.6 K/mm3 (4.0-10.8)
[2018-06-16 15:17] LABS: ALK PHOS 91 U/L (45-117); ANION GAP 6 MMOL/L (8-16); BILIRUBIN,TOTAL 0.9 mg/dl (0.2-1); BLOOD UREA NITROGEN 13 mg/dl (7-18); CALCIUM 8.8 mg/dl (8.5-10); CHLORIDE 102 mmol/L (98-107); CO2 27 mmol/L (21-32); CREATININE 0.8 mg/dl (0.55-1.3); GLUCOSE,RANDOM 111 mg/dl (74-106); POTASSIUM 3.8 mmol/L (3.5-5.1); SGOT/AST 30 U/L (15-37); SGPT/ALT 27 U/L (13-61); SODIUM 135 mmol/L (136-145); TOT PROT 6.9 g/dl (6.4-8.2)
[2018-06-16] MEDS ORDERED: IBUPROFEN 400 MG TABLET (FP) PO ONE ×2 (15:38→15:40)
--- NOTE | 2018-06-16 17:02 | PDOC ---
Attending Attestation - Resident Resident Name: Naeem Carreno - ED Attending Attestation I have performed the following: I have examined & evaluated the patient, The case was reviewed & discussed with the resident, I agree w/resident's findings & plan, Exceptions are as noted - HPI HPI: 06/16/18 16:55 Patient tripped on stairs, injuring his face, right rib cage, and knees. No loss of consciousness. No visual or focal neurologic symptoms. No difficulty breathing - Physicial Exam PE: 06/16/18 16:59 Physical exam: Alert and oriented well-developed well-nourished no acute distress cheerful and cooperative Afebrile, vital signs normal Head atraumatic. No evidence of abrasions, laceration, or hematoma of the scalp PERRLA 3 mm, fundi benign with sharp disc margins and good central venous pulsations. ENT clear There are minor facial contusions over the bridge of the nose and cheek. No orbital or other bony deformity or tenderness Neck without point tenderness or deformity, good range of motion without severe pain Chest clear to P&A with full breath sounds bilaterally, but mild splinting with deep inspiration due to right rib cage pain. There is no palpable deformity or crepitus of the rib cage but there is moderate tenderness to palpation over the lower lateral ribs CV S1 and S2 normal without murmur rub or gallop pulses full and symmetric no JVD or edema no bruits no tachycardia Abdomen soft nontender without mass or organomegaly. Bowel sounds normal. Nondistended Neurological C2 to 12 intact strength full and symmetric no focal sensory or motor deficits gait stable and unimpaired Extremities: Minor contusions of both knees without sign of significant injury. No ligament tenderness or laxity. No deformity. No distal sensory or motor deficits. Pulses full - Medical Decision Making 06/16/18 17:02 Assessment: Minor contusions of the face, ribs, and knees Plan: Head CT and neck CT are negative. Chest x-ray and rib x-rays are negative. Knee x-ray negative patient more comfortable with the administration of Motrin. Fully ambulatory and in no severe pain at discharge to follow-up with primary physician or return to the ER if further symptoms develop.
--- NOTE | 2018-06-26 11:22 | EKG ---
Test Reason : Blood Pressure : / mmHG Vent. Rate : 082 BPM Atrial Rate : 082 BPM P-R Int : 144 ms QRS Dur : 080 ms QT Int : 376 ms P-R-T Axes : 051 000 -02 degrees QTc Int : 439 ms NORMAL SINUS RHYTHM LOW VOLTAGE QRS BORDERLINE ECG WHEN COMPARED WITH ECG OF 08-MAY-2018 01:55, NO SIGNIFICANT CHANGE WAS FOUND Confirmed by ELPIDIO ESCOBAR MD ([id number]) on 06/26/2018 11:22:42 AM Referred By: ANETTE ESTEVEZ Confirmed By:ELPIDIO ESCOBAR MD
== END 2018-06-16 16:33 | disposition home or self-care (01) ==
LOC: FER 13:56
DX: S20.211A Contusion of right front wall of thorax, initial encounter (principal); W18.09XA Striking against other object with subsequent fall, initial encounter; Y93.89 Activity, other specified; Y92.89 Other specified places as the place of occurrence of the external cause; Z87.891 Personal history of nicotine dependence; Z95.5 Presence of coronary angioplasty implant and graft; I10 Essential (primary) hypertension; E78.00 Pure hypercholesterolemia, unspecified
CPT/HCPCS: 36415; 70450-TC; 70486-TC; 71111-TC-FY; 72125-TC; 73562-TC-LT-FY; 80053; 81003; 84484; 85025; 87086; 93005; 99283-25

== ENCOUNTER 2018-11-19 11:20 | Emergency (ER) | payer OTHER, MEDICARE ==
--- NOTE | 2018-11-19 11:34 | PDOC ---
History of Present Illness - General Chief Complaint: Chest Pain Stated Complaint: CHEST "DISCOMFORT" Time Seen by Provider: 11/19/18 11:22 History Source: Patient Exam Limitations: No Limitations - History of Present Illness Initial Comments: 11/19/18 11:30 78 y/o male with chest discomfort since this morning. No SOB or fall. Denies back pain, arm pain or jaw pain. No N/V/d/c. Sees Dr. Arroyo for [facility] but has not seen in a long time. No fever or chills. Took Aspirin this morning and has hx of Stents in past. Presenting Symptoms: Chest Pain Past History - Past Medical History Allergies/Adverse Reactions: Allergies Allergy/AdvReac Type Severity Reaction Status Date / Time Penicillins Allergy Mild Rash Verified 11/19/18 11:22 Home Medications: Ambulatory Orders Metoprolol Succinate 25 mg PO DAILY 06/16/18 Aspirin [Aspirin EC] 81 mg PO DAILY 11/19/18 Memantine HCl/Donepezil HCl [Namzaric 28 mg-10 mg Capsule] 1 each PO HS Sertraline HCl [Zoloft] 25 mg PO DAILY 11/19/18 Cardiac Disorders: Yes (CARDIAC STENT) COPD: No HTN: Yes Hypercholesterolemia: Yes - Surgical History Appendectomy: Yes Cardiac Surgery: Yes (CARDIAC STENT, ABLATION) Cholecystectomy: Yes - Suicide/Smoking/Psychosocial Hx Smoking Status: No Smoking History: Former smoker Have you smoked in the past 12 months: No Number of Cigarettes Smoked Daily: 0 If you are a former smoker, when did you quit?: 25 years ago Hx Alcohol Use: No Drug/Substance Use Hx: No Substance Use Type: None Review of Systems - Review of Systems Able to Perform ROS?: Yes Is the patient limited Yoruba proficient: No Constitutional: No: Chills, Fever Respiratory: No: Cough, Shortness of Breath Cardiac (ROS): Yes: Chest Pain. No: Edema Musculoskeletal: No: Back Pain All Other Systems: Reviewed and Negative *Physical Exam - Vital Signs Last Vital Signs Temp Pulse Resp BP Pulse Ox 98.4 F 80 18 145/83 98 11/19/18 11:20 11/19/18 11:20 11/19/18 11:20 11/19/18 11:20 11/19/18 11:20 - Physical Exam General Appearance: Yes: Nourished, Appropriately Dressed. No: Apparent Distress HEENT: positive: EOMI, SAMY, Normal ENT Inspection, Normal Voice Neck: positive: Trachea midline, Normal Thyroid, Supple. negative: Tender, Carotid bruit Respiratory/Chest: positive: Lungs Clear, Normal Breath Sounds. negative: Chest Tender, Respiratory Distress Cardiovascular: positive: Regular Rhythm, Regular Rate, S1, S2. negative: Edema , JVD, Murmur Vascular Pulses: Femoral (R): 4+, Femoral (L): 4+, Carotid (R): 4+, Carotid (L) : 4+, Dorsalis-Pedis (R): 4+, Doralis-Pedis (L): 4+ Gastrointestinal/Abdominal: positive: Normal Bowel Sounds, Flat, Soft. negative : Tender, Organomegaly, Pulsatile Mass Lymphatic: negative: Adenopathy, Tenderness, Other Musculoskeletal: positive: Normal Inspection. 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 NML intact, Fully Oriented, Alert, Normal Mood/ Affect, Normal Response, Motor Strength 5/5 Heart Score/ECG Review - History History: Moderately suspicious - Electrocardiogram EKG: Non specific repolarization disturbance - Age Age: >/= 65 - Risk Factors Risk Factors Heart Score: Yes Hx Hypertension, Yes Positive family hx of cardiac disease Based on the list above the patient has:: 1-2 risk factors - Troponin Troponin: </= normal limit - Score Heart Score - Total: 5 - ECG Intrepretation Rhythm: Regular Rhythm Comment:: 11/19/18 11:34 rate 80 NSR - [place]: Normal - ST and T Early Repolarization: No Non Specific ST-T Wave changes: No Comment:: 11/19/18 11:34 No STEMI ED Treatment Course - LABORATORY CBC & Chemistry Diagram: 11/19/18 11:43 11/19/18 11:43 Comment: CXR NAD - ADDITIONAL ORDERS Additional order review: Laboratory Results 11/19/18 11/19/18 11:43 11:30 Sodium 137 Potassium 4.0 Chloride 101 Carbon Dioxide 26 Anion Gap 10 BUN 12.0 Creatinine 0.7 Est GFR (CKD-EPI)AfAm 104.76 Est GFR (CKD-EPI)NonAf 90.39 Random Glucose 107 H Calcium 9.2 Total Bilirubin 0.7 AST 20 ALT 19 Alkaline Phosphatase 82 Troponin I < 0.03 Total Protein 6.7 Albumin 4.0 11/19/18 11:43 RBC 5.32 MCV 86.8 MCHC 33.2 RDW 13.8 MPV 8.0 Neutrophils % 80.5 Lymphocytes % 12.3 D Monocytes % 6.2 Eosinophils % 0.7 Basophils % 0.3 Long discussion with patient to admit for observation for chest pain. Patient wishes to leave and follow up with PMD tomorrow. Friend is with him. Patient understands risks and benefits. Will sign out AMA. Denies chest pain at this time. - RADIOLOGY Radiology Studies Ordered: Category Date Time Status CHEST X-RAY PORTABLE* [RAD] Stat Radiology 11/19/18 11:25 Completed *DC/Admit/Observation/Transfer Diagnosis at time of Disposition: Chest pain - Discharge Dispostion Disposition: AGAINST MEDICAL ADVICE Condition at time of disposition: Stable Decision to Admit order: No - Referrals - Patient Instructions Printed Discharge Instructions: DI for Atypical Chest Pain Additional Instructions: Patient signed out AMA Follow up with [facility] If worsen return to ER - Post Discharge Activity
[2018-11-19 11:38] VITALS: TEMP 98.4; BMI 28.0
[2018-11-19 11:57] LABS: BASO % 0.3 % (0-2.0); EOS % 0.7 % (0-4.5); HEMATOCRIT 46.1 % (35.4-49); HEMOGLOBIN 15.3 GM/dl (11.7-16.9); LYMPH % 12.3 % (8-40); MCH 28.8 pg (25.7-33.7); MCHC 33.2 g/dl (32.0-35.9); MEAN CELL VOLUME 86.8 fl (80-96); MONO % 6.2 % (3.8-10.2); NEUT % 80.5 % (42.8-82.8); PLATELET COUNT 221 K/MM3 (134-434); RBC 5.32 M/mm3 (4.00-5.60); RDW 13.8 % (11.9-15.9); WHITE BLOOD COUNT 10.1 K/mm3 (4.0-10.8)
[2018-11-19 12:19] LABS: BILIRUBIN,TOTAL 0.7 mg/dl (0.2-1); CALCIUM 9.2 mg/dl (8.5-10); CREATININE 0.7 mg/dl (0.55-1.3); TOT PROT 6.7 g/dl (6.4-8.2)
[2018-11-19 13:06] VITALS: BP 129/65; PULSE 77
--- NOTE | 2018-11-20 11:54 | EKG ---
Test Reason : Blood Pressure : / mmHG Vent. Rate : 080 BPM Atrial Rate : 080 BPM P-R Int : 148 ms QRS Dur : 080 ms QT Int : 376 ms P-R-T Axes : 050 002 -02 degrees QTc Int : 433 ms NORMAL SINUS RHYTHM CANNOT RULE OUT INFERIOR INFARCT , AGE UNDETERMINED ABNORMAL ECG WHEN COMPARED WITH ECG OF 16-JUN-2018 14:20, NO SIGNIFICANT CHANGE WAS FOUND Confirmed by LUZ MENON, ELPIDIO ([id number]) on 11/20/2018 11:54:35 AM Referred By: MOY BAUTISTA Confirmed By:ELPIDIO ESCOBAR MD
== END 2018-11-19 13:10 | disposition left against medical advice (07) ==
LOC: SUPCPDRO 11:20 → FER 11:20
DX: R07.9 Chest pain, unspecified (principal); Z87.891 Personal history of nicotine dependence; I10 Essential (primary) hypertension; E78.00 Pure hypercholesterolemia, unspecified; Z95.5 Presence of coronary angioplasty implant and graft
CPT/HCPCS: 36415; 71045-TC-FY; 80053; 84484; 85025; 93005; 99285-25

== ENCOUNTER 2018-12-23 09:37 | Observation (INO) | payer OTHER, MEDICARE ==
--- NOTE | 2018-12-23 09:42 | PDOC ---
History of Present Illness - General Chief Complaint: Chest Pain Stated Complaint: CHEST PAIN THIS AM Time Seen by Provider: 12/23/18 09:42 - History of Present Illness Initial Comments: 12/23/18 09:55 Pt presents to the ED complaining of substernal, non radiating chest pain that began this AM at 6. Pain is significantly improved, but still has persistent low level pain. Also complaining of mild, non exertional, non orthopneic shortness of breath. Patient was seen in the ED in November for similar complaints---left AMA prior to admision. Patient stats that he saw his baggage agent supervisor, Dr. Henrry Hannah who did a holter monitor and told the patient that everything was normal. Past History - Past Medical History Allergies/Adverse Reactions: Allergies Allergy/AdvReac Type Severity Reaction Status Date / Time Penicillins Allergy Mild Rash Verified 12/23/18 09:39 Home Medications: Ambulatory Orders Metoprolol Succinate 25 mg PO DAILY 06/16/18 Aspirin [Aspirin EC] 81 mg PO DAILY 11/19/18 Sertraline HCl [Zoloft] 25 mg PO DAILY 11/19/18 Crestor 1 tab PO DAILY 12/23/18 Lexapro - 1 tab PO DAILY 12/23/18 Cardiac Disorders: Yes (CARDIAC STENT) COPD: No HTN: Yes Hypercholesterolemia: Yes Psychiatric Problems: Yes (ANXIETY) - Surgical History Appendectomy: Yes Cardiac Surgery: Yes (CARDIAC STENT, ABLATION) Cholecystectomy: Yes - Suicide/Smoking/Psychosocial Hx Smoking Status: No Smoking History: Former smoker Have you smoked in the past 12 months: No Number of Cigarettes Smoked Daily: 0 If you are a former smoker, when did you quit?: 25 years ago Hx Alcohol Use: No Drug/Substance Use Hx: No Substance Use Type: None Review of Systems - Review of Systems Able to Perform ROS?: Yes Is the patient limited Mohawk proficient: No Constitutional: No: Symptoms Reported, See HPI, Chills, Diaphoresis, Fever, Loss of Appetite, Malaise, Night Sweats, Weakness, Weight Stable, Unintentional Wgt. Loss, Unexplained wgt Loss, Other HEENTM: No: Symptoms Reported, See HPI, Eye Pain, Blurred Vision, Tearing, Recent change in vision, Double Vision, Cataracts, Ear Pain, Ocular Prothesis, Ear Discharge, Nose Pain, Nose Congestion, Tinnitus, Nose Bleeding, Hearing Loss , Throat Pain, Throat Swelling, Mouth Pain, Dental Problems, Difficulty Swallowing, Mouth Swelling, Other Respiratory: Yes: Shortness of Breath. No: Symptoms reported, See HPI, Cough, Orthopnea, SOB with Exertion, SOB at Rest, Stridor, Wheezing, Productive cough, Hemoptysis, Other Cardiac (ROS): Yes: Chest Pain, Lightheadedness. No: Symptoms Reported, See HPI , Edema, Irregular Heart Rate, Palpitations, Syncope, Chest Tightness, Other ABD/GI: No: Symptoms Reported, See HPI, Abdominal Distended, Abd. Pain w/ defecation, Blood Streaked Bowels, Constipated, Diarrhea, Difficulty Swallowing , Nausea, Poor Appetite, Poor Fluid Intake, Rectal Bleeding, Vomiting, Indigestion, Abdominal cramping, Tarry Stools, Other Musculoskeletal: No: Symptoms Reported, See HPI, Back Pain, Gout, Joint Pain, Joint Swelling, Muscle Pain, Muscle Weakness, Neck Pain, Joint Stiffness, Other Neurological: Yes: Dizziness. No: Symptoms reported, See HPI, Headache, Numbness, Paresthesia, Pre-Existing Deficit, Seizure, Tingling, Tremors, Weakness, Unsteady Gait, Ataxia, Other Psychiatric: No: Anxiety, Depression, Frequent Crying, Stressors, Sleep Pattern Change, Emotional Problems, Mood Swings, Change in Appetite, Other All Other Systems: Reviewed and Negative *Physical Exam - Physical Exam Comments: 12/23/18 10:01 Gen: alert, NAD CV: rrr no m/r/g Pulm: CTA b/l Abdomen: soft, non tender, non distended Ext: no edema or tenderness Neuro: alert and oriented x 3, CN grossly intact, ambulatory with normal gait. ED Treatment Course - LABORATORY CBC & Chemistry Diagram: 12/23/18 10:20 12/23/18 10:20 Medical Decision Making - Medical Decision Making 12/23/18 10:02 Pt presents to the ED complaining of substernal chest pain and shortness of breath. EKG shows no evidence of ischemia, but HEART Score is 5 without troponin. Will check labs and cardiac enzymes, likely admit for observation for r/o CA. *DC/Admit/Observation/Transfer Diagnosis at time of Disposition: Chest pain Qualifiers: Chest pain type: other chest pain Qualified Code(s): R07.89 - Other chest pain ; R07.8 - Other chest pain - Discharge Dispostion Condition at time of disposition: Good Decision to Admit order: Yes - Referrals - Patient Instructions - Post Discharge Activity
[2018-12-23] MEDS ORDERED: ASPIRIN 81 MG CHEWABLE TABLETS PO ONE (09:54)
[2018-12-23] MEDS ORDERED: ASPIRIN 81 MG CHEWABLE TABLETS ONE (10:27)
[2018-12-23 10:40] LABS: BASO % 0.3 % (0-2.0); EOS % 0.9 % (0-4.5); HEMATOCRIT 45.7 % (35.4-49); HEMOGLOBIN 14.9 GM/dl (11.7-16.9); LYMPH % 12.9 % (8-40); MCH 28.1 pg (25.7-33.7); MCHC 32.5 g/dl (32.0-35.9); MEAN CELL VOLUME 86.5 fl (80-96); MEAN PLT VOLUME 7.8 fl (7.5-11.1); MONO % 5.4 % (3.8-10.2); NEUT % 80.5 % (42.8-82.8); PLATELET COUNT 217 K/MM3 (134-434); RBC 5.29 M/mm3 (4.00-5.60); RDW 14.1 % (11.9-15.9); WHITE BLOOD COUNT 7.9 K/mm3 (4.0-10.8)
[2018-12-23 11:01] LABS: BILIRUBIN,TOTAL 0.7 mg/dl (0.2-1); CREATININE 0.8 mg/dl (0.55-1.3); POTASSIUM 4.2 mmol/L (3.5-5.1); TOT PROT 6.7 g/dl (6.4-8.2)
--- NOTE | 2018-12-23 13:37 | HP ---
CHIEF COMPLAINT: PCP: HISTORY OF PRESENT ILLNESS: ER course was notable for: (1) (2) (3) Recent Travel: PAST MEDICAL HISTORY: PAST SURGICAL HISTORY: Social History: Smoking: Alcohol: Drugs: Family History: Allergies Penicillins Allergy (Mild, Verified 12/23/18 09:39) Rash HOME MEDICATIONS: Home Medications Medication Instructions Recorded Metoprolol Succinate 25 mg PO DAILY 06/16/18 Aspirin [Aspirin EC] 81 mg PO DAILY 11/19/18 Sertraline HCl [Zoloft] 25 mg PO DAILY 11/19/18 Crestor 1 tab PO DAILY 12/23/18 Lexapro - 1 tab PO DAILY 12/23/18 REVIEW OF SYSTEMS CONSTITUTIONAL: Absent: fever, chills, diaphoresis, generalized weakness, malaise, loss of appetite, weight change HEENT: Absent: rhinorrhea, nasal congestion, throat pain, throat swelling, difficulty swallowing, mouth swelling, ear pain, eye pain, visual changes CARDIOVASCULAR: Absent: chest pain, syncope, palpitations, irregular heart rate, lightheadedness , peripheral edema RESPIRATORY: Absent: cough, shortness of breath, dyspnea with exertion, orthopnea, wheezing, stridor, hemoptysis GASTROINTESTINAL: Absent: abdominal pain, abdominal distension, nausea, vomiting, diarrhea, constipation, melena, hematochezia GENITOURINARY: Absent: dysuria, frequency, urgency, hesitancy, hematuria, flank pain, genital pain MUSCULOSKELETAL: Absent: myalgia, arthralgia, joint swelling, back pain, neck pain SKIN: Absent: rash, itching, pallor HEMATOLOGIC/IMMUNOLOGIC: Absent: easy bleeding, easy bruising, lymphadenopathy, frequent infections ENDOCRINE: Absent: unexplained weight gain, unexplained weight loss, heat intolerance, cold intolerance NEUROLOGIC: Absent: headache, focal weakness or paresthesias, dizziness, unsteady gait, seizure, mental status changes, bladder or bowel incontinence PSYCHIATRIC: Absent: anxiety, depression, suicidal or homicidal ideation, hallucinations. PHYSICAL EXAMINATION Vital Signs - 24 hr 12/23/18 12/23/18 12/23/18 09:37 11:40 13:04 Temperature 98.6 F Pulse Rate 84 Pulse Rate [ 89 78 Left] Respiratory 20 17 Rate Blood Pressure 129/84 Blood Pressure 126/91 113/73 [Right Arm] O2 Sat by Pulse 98 97 97 Oximetry (%) GENERAL: Awake, alert, and fully oriented, in no acute distress. HEAD: Normal with no signs of trauma. EYES: Pupils equal, round and reactive to light, extraocular movements intact, sclera anicteric, conjunctiva clear. No lid lag. EARS, NOSE, THROAT: Ears normal, nares patent, oropharynx clear without exudates. Moist mucous membranes. NECK: Normal range of motion, supple without lymphadenopathy, JVD, or masses. LUNGS: Breath sounds equal, clear to auscultation bilaterally. No wheezes, and no crackles. No accessory muscle use. HEART: Regular rate and rhythm, normal S1 and S2 without murmur, rub or gallop. ABDOMEN: Soft, nontender, not distended, normoactive bowel sounds, no guarding, no rebound, no masses. No hepatomegaly or splenomegaly. MUSCULOSKELETAL: Normal range of motion at all joints. No bony deformities or tenderness. No CVA tenderness. UPPER EXTREMITIES: 2+ pulses, warm, well-perfused. No cyanosis. No clubbing. No peripheral edema. LOWER EXTREMITIES: 2+ pulses, warm, well-perfused. No calf tenderness. No peripheral edema. NEUROLOGICAL: Cranial nerves II-XII intact. Normal speech. Normal gait. PSYCHIATRIC: Cooperative. Good eye contact. Appropriate mood and affect. SKIN: Warm, dry, normal turgor, no rashes or lesions noted, normal capillary refill. Laboratory Results - last 24 hr 12/23/18 12/23/18 12/23/18 10:20 10:20 10:30 WBC 7.9 RBC 5.29 Hgb 14.9 Hct 45.7 MCV 86.5 MCH 28.1 MCHC 32.5 RDW 14.1 Plt Count 217 MPV 7.8 Absolute Neuts (auto) 6.4 Neutrophils % 80.5 Lymphocytes % 12.9 Monocytes % 5.4 Eosinophils % 0.9 Basophils % 0.3 Sodium 135 L Potassium 4.2 Chloride 102 Carbon Dioxide 25 Anion Gap 8 BUN 10.0 Creatinine 0.8 Est GFR (CKD-EPI)AfAm 99.17 Est GFR (CKD-EPI)NonAf 85.56 Random Glucose 113 H Calcium 9.0 Total Bilirubin 0.7 AST 21 ALT 21 Alkaline Phosphatase 86 Creatine Kinase 117 Troponin I < 0.03 Total Protein 6.7 Albumin 4.0 ASSESSMENT/PLAN:
[2018-12-23] MEDS: SERTRALINE HCL 25 MG TABLET (FP) PO SCH (17:43)
[2018-12-23] MEDS: ESCITALOPRAM OXALATE 10 MG TABLET (FP) PO SCH (17:43)
[2018-12-23 18:02] VITALS: BMI 34.5
[2018-12-23] MEDS ORDERED: ROSUVASTATIN CA 10 MG TABLET (FP) PO SCH (22:00)
[2018-12-24 08:41] VITALS: BP 118/56; PULSE 86; TEMP 98.1
[2018-12-24 09:31] LABS: INR 1.24 (0.82-1.09); PROTHROMBIN TIME (PATIENT) 13.8 SEC (10.2-13.0)
[2018-12-24 09:34] LABS: BASO % 0.3 % (0-2.0); EOS % 0.9 % (0-4.5); HEMOGLOBIN 15.8 GM/dl (11.7-16.9); LYMPH % 15.7 % (8-40); MCH 29.5 pg (25.7-33.7); MCHC 33.6 g/dl (32.0-35.9); MEAN CELL VOLUME 87.7 fl (80-96); MEAN PLT VOLUME 8.5 fl (7.5-11.1); NEUT % 78.1 % (42.8-82.8); PLATELET COUNT 224 K/MM3 (134-434); RBC 5.36 M/mm3 (4.00-5.60); RDW 14.1 % (11.9-15.9)
[2018-12-24] MEDS: ESCITALOPRAM OXALATE 10 MG TABLET (FP) PO SCH (09:41)
[2018-12-24] MEDS: SERTRALINE HCL 25 MG TABLET (FP) PO SCH (09:41)
[2018-12-24 09:42] LABS: ALBUMIN 4.1 g/dl (3.4-5.0); BILIRUBIN,TOTAL 0.7 mg/dl (0.2-1); CALCIUM 8.9 mg/dl (8.5-10); CREATININE 0.8 mg/dl (0.55-1.3); POTASSIUM 4.2 mmol/L (3.5-5.1); TOT PROT 6.9 g/dl (6.4-8.2)
[2018-12-24] MEDS ORDERED: metoPROLOL SUCCINATE 25 MG TAB.SR.24H (FP) PO SCH (10:00)
[2018-12-24] MEDS ORDERED: ASPIRIN COATED 81 MG TABLET.EC PO SCH (10:00)
--- NOTE | 2018-12-24 12:09 | DS ---
Physical Exam: SUBJECTIVE: Patient seen and examined OBJECTIVE: Vital Signs Period Temp Pulse Resp BP Sys/Cam Pulse Ox Last 24 Hr 97.6 F-98.2 F 66-86 16-20 112-149/56-86 94-98 PHYSICAL EXAM GENERAL: The patient is awake, alert, and fully oriented, in no acute distress. HEAD: Normal with no signs of trauma. EYES: PERRL, extraocular movements intact, sclera anicteric, conjunctiva clear. ENT: Ears normal, nares patent, oropharynx clear without exudates, moist mucous membranes. NECK: Trachea midline, full range of motion, supple. LUNGS: Breath sounds equal, clear to auscultation bilaterally, no wheezes, no crackles, no accessory muscle use. HEART: Regular rate and rhythm, S1, S2 without murmur, rub or gallop. ABDOMEN: Soft, nontender, nondistended, normoactive bowel sounds, no guarding, no rebound, no hepatosplenomegaly, no masses. EXTREMITIES: 2+ pulses, warm, well-perfused, no edema. NEUROLOGICAL: Cranial nerves II through XII grossly intact. Normal speech, gait not observed. PSYCH: Normal mood, normal affect. SKIN: Warm, dry, normal turgor, no rashes or lesions noted. LABS Laboratory Results - last 24 hr 12/23/18 12/23/18 12/24/18 16:30 22:30 08:15 WBC 9.0 RBC 5.36 Hgb 15.8 Hct 47.0 MCV 87.7 MCH 29.5 MCHC 33.6 RDW 14.1 Plt Count 224 MPV 8.5 Absolute Neuts (auto) 7.0 Neutrophils % 78.1 Lymphocytes % 15.7 D Monocytes % 5.0 Eosinophils % 0.9 Basophils % 0.3 PT with INR INR Sodium Potassium Chloride Carbon Dioxide Anion Gap BUN Creatinine Est GFR (CKD-EPI)AfAm Est GFR (CKD-EPI)NonAf Random Glucose Calcium Magnesium Total Bilirubin AST ALT Alkaline Phosphatase Troponin I < 0.03 < 0.03 Total Protein Albumin 12/24/18 12/24/18 08:15 08:15 WBC RBC Hgb Hct MCV MCH MCHC RDW Plt Count MPV Absolute Neuts (auto) Neutrophils % Lymphocytes % Monocytes % Eosinophils % Basophils % PT with INR 13.8 H INR 1.24 H Sodium 136 Potassium 4.2 Chloride 102 Carbon Dioxide 25 Anion Gap 9 BUN 11.0 Creatinine 0.8 Est GFR (CKD-EPI)AfAm 99.17 Est GFR (CKD-EPI)NonAf 85.56 Random Glucose 100 Calcium 8.9 Magnesium 2.0 Total Bilirubin 0.7 AST 20 ALT 19 Alkaline Phosphatase 94 Troponin I Total Protein 6.9 Albumin 4.1 HOSPITAL COURSE: Date of Admission:12/23/18 Date of Discharge: 12/24/18 Discharge Summary Reason For Visit: CHEST PAIN Current Active Problems Chest pain (Acute) Condition: Good - Instructions - Home Medications Comprehensive Discharge Medication List: Ambulatory Orders Metoprolol Succinate 25 mg PO DAILY 06/16/18 Aspirin [Aspirin EC] 81 mg PO DAILY 11/19/18 Sertraline HCl [Zoloft] 25 mg PO DAILY 11/19/18 Crestor 10 mg PO DAILY 12/23/18 Lexapro - 10 mg PO DAILY 12/23/18
--- NOTE | 2018-12-24 12:49 | CON.CARD ---
Consult Consult Specialty:: cardiology Referred by:: hospitalist Reason for Consultation:: chest pain rule out acs - History of Present Illness Chief Complaint: forgetfulness, chest discomfort History of Present Illness: 78-year-old man with a pmh of CAD prior stents approximately 5 years ago, Pafib s/p ablation, followed by campus security officer Dr. Hannah, admitted with c/o forgetfullness and chest discomfort. pt seen and examined today in nad. pt awake and alert but states that he has been very forgetful lately. he has trouble providing a clear history due to this. when asked why he came to the hospital he states because of forgetfullness. he also admits to intermittent mild substernal chest discomfort. states he saw his campus security officer recently and had a holter monitor done. denies any current chest pain or sob. no palpitations, pnd, orthopnea. - History Source History Provided By: Patient, Medical Record Limitations to Obtaining History: Poor Historian - Past Medical History Cardio/Vascular: Yes: AFIB, CAD - Past Surgical History Past Surgical History: Yes: Stent - Alcohol/Substance Use Hx Alcohol Use: No - Smoking History Smoking history: Former smoker Have you smoked in the past 12 months: No Aproximately how many cigarettes per day: 0 If you are a former smoker, when did you quit?: 25 years ago - Social History Usual Living Arrangement: Alone Home Medications - Allergies Allergies/Adverse Reactions: Allergies Allergy/AdvReac Type Severity Reaction Status Date / Time Penicillins Allergy Mild Rash Verified 12/23/18 09:39 - Home Medications Home Medications: Ambulatory Orders Metoprolol Succinate 25 mg PO DAILY 06/16/18 Aspirin [Aspirin EC] 81 mg PO DAILY 11/19/18 Sertraline HCl [Zoloft] 25 mg PO DAILY 11/19/18 Crestor 10 mg PO DAILY 12/23/18 Lexapro - 10 mg PO DAILY 12/23/18 Family Disease History - Family Disease History Family Disease History: Heart Disease: Father ([place] age 48; of CVA early 60s) Review of Systems - Review of Systems Constitutional: denies: No Symptoms, Chills, Diaphoresis, Fever, Lethargy, Loss of Appetite, Malaise, Night Sweats, Unintentional Wgt. Loss, Weakness, Other Eyes: denies: No Symptoms, Blind Spots, Blurred Vision, Double Vision, Eye Pain , Floaters, Photophobia, Recent Change in Vision, Other HENT: denies: No Symptoms, Difficult Swallowing, Ear Discharge, Ear Pain, Epistaxis, Gingival Bleeding, Hearing Loss, Mouth Swelling, Nasal Congestion, Ocular Prosthesis, Throat Pain, Toothache, Ringing in Ears, Other Neck: denies: No Symptoms, Decreased ROM, Lumps, Pain on Movement, Stiffness, Swollen Glands, Tenderness, Other Cardiovascular: reports: Chest Pain. denies: No Symptoms, Edema, Palpitations, Shortness of Breath, Other Respiratory: denies: No Symptoms, Cough, Exercise Intolerance, Hemoptysis, Orthopnea, PND, Snoring, SOB, SOB on Exertion, Wheezing, Other Gastrointestinal: denies: No Symptoms, Abdominal Pain, Bloating, Constipation, Diarrhea, Dysphagia, Indigestion, Melena, Nausea, Rectal Bleeding, Vomiting, Vomiting Blood, Other Genitourinary: denies: No Symptoms, Burning, Discharge, Dysuria, Flank Pain, Frequency, Hematuria, Incontinence, Lesions, Menses, Pain, Testicular Mass, Testicular Pain, Testicular Swelling, Urgency, Vaginal Bleeding, Other Breasts: denies: No Symptoms Reported, See HPI, Breast Implants, Discharge from Nipple, Lumps, Pain, Skin Changes, Other Musculoskeletal: denies: No Symptoms, Back Pain, Crepitus, Decreased ROM, Extremity Pain, Joint Pain, Joint Swelling, Muscle Pain, Muscle Cramps, Muscle Weakness, Other Integumentary: denies: No Symptoms, Blister, Bruising, Change in Color, Eczema, Erythema, Incision, Lesions, Lump, Pallor, Pruritis, Rash, Wound, Other Neurological: reports: Confusion. denies: No Symptoms, Change in LOC, Change in Speech, Dizziness, Headache, Incoordination, Numbness, Parasthesia, Pre- Existing Deficit, Seizure, Syncope, Tremors, Unsteady Gait, Weakness, Other Endocrine: denies: No Symptoms, Excessive Sweating, Flushing, Increased Hunger, Increased Thirst, Intolerance to Cold, Intolerance to Heat, Unexplained Weight Gain, Unexplained Weight Loss, Other Hematology/Lymphatic: denies: No Symptoms, Easily Bruised, Excessive Bleeding, Swollen Glands, Other Psychiatric: denies: No Symptoms, Altered Sleep Pattern, Anxiety, Depression, Hallucinations, Panic, Paranoia, Suicidal, Other Vital Signs: Vital Signs Temperature 98.1 F 12/24/18 08:00 Pulse Rate 86 12/24/18 08:00 Respiratory Rate 20 12/24/18 08:00 Blood Pressure 118/56 L 12/24/18 08:00 O2 Sat by Pulse Oximetry (%) 94 L 12/24/18 06:00 Constitutional: Yes: No Distress, Calm Eyes: Yes: Conjunctiva Clear, EOM Intact HENT: Yes: Atraumatic, Normocephalic Neck: Yes: Supple, Trachea Midline Respiratory: Yes: Regular, CTA Bilaterally. No: Diminished, Rales, Rhonchi, Wheezes Gastrointestinal: Yes: Normal Bowel Sounds, Soft Cardiovascular: Yes: Regular Rate and Rhythm. No: Bradycardia, Tachycardia, Pulse Irregular, Gallop, Rub, Varicosities JVD: No Carotid Bruit: No PMI: Non-Displaced Heart Sounds: Yes: S1, S2. No: Split S2, S3, S4, Clicks, Gallop, Rub, Bruit Murmur: No: Systolic Murmur, Diastolic Murmur Musculoskeletal: Yes: WNL Extremities: Yes: WNL Edema: No Peripheral Pulses WNL: Yes Neurological: Yes: Confusion Psychiatric: Yes: Alert - Other Data Labs, Other Data: CBC, BMP 12/24/18 08:15 12/24/18 08:15 INR, PTT INR 1.24 (0.82-1.09) H 12/24/18 08:15 Troponin, BNP 12/23/18 12/23/18 16:30 22:30 Troponin I < 0.03 < 0.03 Troponin, BNP 12/23/18 12/23/18 16:30 22:30 Troponin I < 0.03 < 0.03 nsr, normal ecg Prior Cardiac Procedures: PTCA with Stent Imaging - Results Chest X-ray: Report Reviewed, Image Reviewed EKG: Report Reviewed, Image Reviewed Other: Report Reviewed, Image Reviewed (tele-no sig arrhythmias) Assessment/Plan 78-year-old man with a pmh of CAD prior stents approximately 5 years ago, Pafib s/p ablation, followed by campus security officer Dr. Hannah, admitted with c/o forgetfullness and chest discomfort. pt seen and examined today in nad. pt awake and alert but states that he has been very forgetful lately. he has trouble providing a clear history due to this. when asked why he came to the hospital he states because of forgetfullness. he also admits to intermittent mild substernal chest discomfort. states he saw his campus security officer recently and had a holter monitor done. denies any current chest pain or sob. no palpitations, pnd, orthopnea. CHest pain-atypical, not c/w acs, history of CAD with stents in the past -no further chest pain -ECG normal -cardiac enzymes wnl -pt has a campus security officer Dr. Hannah who he follows with regularly. No further inpatient cardiac work up is needed at this time. Recc close outpatient fup. please call with any further questions.
--- NOTE | 2018-12-24 17:14 | EKG ---
Test Reason : Blood Pressure : / mmHG Vent. Rate : 078 BPM Atrial Rate : 078 BPM P-R Int : 140 ms QRS Dur : 086 ms QT Int : 392 ms P-R-T Axes : 040 005 011 degrees QTc Int : 446 ms NORMAL SINUS RHYTHM NORMAL ECG WHEN COMPARED WITH ECG OF 19-NOV-2018 11:23, MINIMAL CRITERIA FOR INFERIOR INFARCT ARE NO LONGER PRESENT Confirmed by VISHAL BETHEA MD ([id number]) on 12/24/2018 5:14:07 PM Referred By: BRETT Confirmed By:VISHAL BETHEA MD
--- NOTE | 2018-12-25 11:33 | EKG ---
Test Reason : Blood Pressure : / mmHG Vent. Rate : 077 BPM Atrial Rate : 077 BPM P-R Int : 146 ms QRS Dur : 086 ms QT Int : 394 ms P-R-T Axes : 035 003 000 degrees QTc Int : 445 ms NORMAL SINUS RHYTHM NORMAL ECG WHEN COMPARED WITH ECG OF 23-DEC-2018 09:40, NO SIGNIFICANT CHANGE WAS FOUND Confirmed by ELPIDIO ESCOBAR MD ([id number]) on 12/25/2018 11:33:17 AM Referred By: Confirmed By:ELPIDIO ESCOBAR MD
== END 2018-12-24 12:45 | disposition home or self-care (01) ==
LOC: FER 09:37 → UNDOADMOB 16:00 → FM/S 16:00
PROVIDERS: ADMIT Internal Medicine; ATTEND Nurse Practitioner Acute Care
DX: R07.89 Other chest pain (principal); I10 Essential (primary) hypertension; E78.5 Hyperlipidemia, unspecified; I25.10 Atherosclerotic heart disease of native coronary artery without angina pectoris; Z87.891 Personal history of nicotine dependence; Z95.5 Presence of coronary angioplasty implant and graft; Z79.82 Long term (current) use of aspirin; Z88.0 Allergy status to penicillin
CPT/HCPCS: 36415; 71045-TC-FY; 71046-TC-FY; 80053; 82550; 83735; 84484; 85025; 85610; 93005; 99285-25; G0378